=== PATIENT | female | born 1960 | race African-American/Black ===

== ENCOUNTER 2019-07-03 20:27 | Inpatient (IN) ==
[2019-07-03] MEDS ORDERED: SODIUM CHLORIDE 0.9% 1,000 ML IV STA (23:01)
[2019-07-03 23:14] LABS: Basophils % 0.2 % (0.0-0.8); Eosinophils % 0.1 % (0.00-10.9); Hematocrit 35.6 VOL% (35.7-47.0); Immature Granulocytes % 0.8 %; Immature Granulocytes Absolute 0.12 #; Lymphocytes # 1.7 10*3/uL (1.4-4.0); Lymphocytes % 11.6 % (21.3-54.2); Mean Corpuscular HGB Conc 30.9 GM/DL (32-36); Mean Corpuscular Volume 90.6 FL (87-102); Mean Platelet Volume 9.9 FL (9.6-12.0); Monocytes % 14.2 % (1.7-12.7); Neutrophils % 73.1 % (38.7-73.9); Platelet Count 293 T/CUMM (130-400); Red Blood Count 3.93 MC/CUMM (3.8-5.5); Red Cell Distribution Width 13.8 % (9.3-17.3); White Blood Count 14.7 T/CUMM (4-12)
[2019-07-03 23:18] LABS: Apearance,Urine CLEAR (Clear); Bacteria,Urine Occasional /HPF (Few); Bilirubin,Urine Negative (Negative); Blood, Urine Negative (Negative); Glucose,Urine (UA) Negative (Negative); Hyaline Casts,Urine 14 /LPF (0-3); Ketones,Urine 5 mg/dL (Negative); Mucus,Urine Few /LPF (Occasional); Nitrite,Urine Negative (Negative); Protein,Urine 30 MG/DL; RBC,Urine 1 /HPF (0-4); Squamous Epithelial Cell,Urine Occasional /HPF (0-10); Urine Color Amber (Yellow); Urine Specific Gravity 1.027 (1.001-1.035); Urine Urobilinogen < 2.0 EU/DL (0.2-1.0); WBC,Urine 2 /HPF (0-6)
[2019-07-03 23:26] LABS: Barbiturates Screen,Urine Negative (Negative); Benzodiazepines Screen,Urine Negative (Negative); Cannabinoid Screen,Urine Negative (Negative); Opiate Screen,Urine Positive (Negative); Phencyclidine Screen,Urine Negative (Negative)
[2019-07-03 23:31] LABS: INR 0.9; PT Patient Result 10.2 SECS
[2019-07-03 23:35] LABS: Alanine Aminotransferase 26 U/L (13-56); Alkaline Phosphatase 106 U/L (45-117); Aspartate Amino Transferase 26 U/L (0-37); Bilirubin,Total < 0.39 MG/DL (0.2-1.0); Blood Urea Nitrogen 49 MG/DL (7-18); Calcium 10.4 MG/DL (8.5-10.1); Glucose 198 MG/DL (74-106); Osmolality,Calculated 291.8 MOS/KG (273-304); Troponin I < 0.015 NG/ML (0.00-0.045)
[2019-07-04] MEDS ORDERED: PIPERACILLIN/TAZOBACTAM 3,375 MG in SODIUM CHLORIDE 0.9% 100 ML IV STA (00:55)
[2019-07-04] MEDS ORDERED: VANCOMYCIN INJ 1,000 MG in SODIUM CHLORIDE 0.9% 250 ML IV STA ×2 (00:55→01:15)
[2019-07-04] MEDS ORDERED: AZITHROMYCIN INJ 500 MG in SODIUM CHLORIDE 0.9% 250 ML IV SCH (04:30)
[2019-07-04] MEDS ORDERED: GLUCAGON 1 MG VIAL IM PRN (04:30)
[2019-07-04] MEDS ORDERED: ONDANSETRON 4 MG/2 ML VIAL IV PRN (04:30)
[2019-07-04] MEDS: SODIUM CHLORIDE 0.9% 1,000 ML IV SCH ×2 (05:40→14:52)
[2019-07-04 05:54] LABS: Basophils % 0.2 % (0.0-0.8); Eosinophils % 0.2 % (0.00-10.9); Hemoglobin 9.3 GM/DL (12.0-16.0); Immature Granulocytes % 0.4 %; Immature Granulocytes Absolute 0.05 #; Lymphocytes # 1.8 10*3/uL (1.4-4.0); Lymphocytes % 15.8 % (21.3-54.2); Mean Corpuscular Volume 90.6 FL (87-102); Mean Platelet Volume 9.6 FL (9.6-12.0); Monocytes % 13.2 % (1.7-12.7); Neutrophils % 70.2 % (38.7-73.9); Platelet Count 245 T/CUMM (130-400); Red Blood Count 3.31 MC/CUMM (3.8-5.5); Red Cell Distribution Width 14.1 % (9.3-17.3); White Blood Count 11.1 T/CUMM (4-12)
[2019-07-04 06:11] LABS: % Iron Saturation 9.4 % (18-50); Ferritin 220.6 ng/ml (8-252)
[2019-07-04] MEDS: cefTRIAXone 1,000 MG in SYRINGE 1 EACH IV SCH (06:15)
[2019-07-04 06:18] LABS: Vitamin B12 746 PG/ML (211-911)
[2019-07-04 07:10] LABS: Sedimentation Rate-Westergren 114 MM/HR (0-30)
[2019-07-04] MEDS ORDERED: glyBURIDE 5 MG TABLET PO SCH (07:30)
[2019-07-04] MEDS ORDERED: LOSARTAN 25 MG TABLET PO SCH (09:00)
[2019-07-04] MEDS: CHOLECALCIFEROL 1,000 UNIT TABLET PO SCH ×2 (10:04→21:46)
[2019-07-04] MEDS: DESVENLAFAXINE 50 MG TABLET PO SCH (10:04)
[2019-07-04] MEDS: PANTOPRAZOLE 40 MG TABLET PO SCH (10:04)
[2019-07-04] MEDS: AZITHROMYCIN INJ 500 MG in SODIUM CHLORIDE 0.9% 250 ML IV SCH (10:05)
[2019-07-04] MEDS: INSULIN LISPRO 100 UNIT/ML SUBCUT SCH ×3 (10:05→18:14)
[2019-07-04 14:01] LABS: PT Patient Result 10.4 SECS
[2019-07-04] MEDS: DEXTROSE 5% NACL 0.9% 1,000 ML IV SCH (14:56)
[2019-07-04] MEDS: DEXTROSE 10% 250 ML BAG IV PRN (15:18)
[2019-07-04] MEDS: ACETAMINOPHEN 325 MG TABLET PO PRN (15:24)
[2019-07-04] MEDS: metroNIDAZOLE INJ 500 MG in PREMIX 1 EACH IV SCH (17:55)
[2019-07-04 18:26] LABS: Lymphocytes,Pleural Fluid 31 %; Neutrophils,Pleural Fluid 69 %; RBC,Pleural Fluid 7395 T/CUMM
[2019-07-04] MEDS: MONTELUKAST 10 MG TABLET PO SCH (21:45)
[2019-07-04] MEDS: FAMOTIDINE 20 MG TABLET PO SCH (21:45)
[2019-07-05] MEDS: metroNIDAZOLE INJ 500 MG in PREMIX 1 EACH IV SCH (00:32)
[2019-07-05] MEDS: cefTRIAXone 1,000 MG in SYRINGE 1 EACH IV SCH (04:51)
[2019-07-05 04:57] LABS: Basophils % 0.1 % (0.0-0.8); Eosinophils % 0.1 % (0.00-10.9); Hematocrit 32.6 VOL% (35.7-47.0); Hemoglobin 10.3 GM/DL (12.0-16.0); Immature Granulocytes % 0.7 %; Immature Granulocytes Absolute 0.09 #; Lymphocytes % 15.1 % (21.3-54.2); Mean Corpuscular HGB Conc 31.6 GM/DL (32-36); Mean Corpuscular Volume 90.6 FL (87-102); Mean Platelet Volume 9.6 FL (9.6-12.0); Monocytes % 14.1 % (1.7-12.7); Neutrophils % 69.9 % (38.7-73.9); Platelet Count 286 T/CUMM (130-400); Red Cell Distribution Width 14.1 % (9.3-17.3); White Blood Count 13.4 T/CUMM (4-12)
[2019-07-05 05:14] LABS: Calcium 8.8 MG/DL (8.5-10.1); Osmolality,Calculated 280.1 MOS/KG (273-304)
[2019-07-05] MEDS: DEXTROSE 10% 250 ML BAG IV PRN (05:25)
[2019-07-05] MEDS: AZITHROMYCIN INJ 500 MG in SODIUM CHLORIDE 0.9% 250 ML IV SCH (09:19)
[2019-07-05 09:24] LABS: Hemoglobin A1 (Alkaline) 97.9 % (96.5-98.5); Hemoglobin A2 (Alkaline) 2.1 % (1.5-3.5)
[2019-07-05] MEDS: PANTOPRAZOLE 40 MG TABLET PO SCH (09:25)
[2019-07-05] MEDS: CHOLECALCIFEROL 1,000 UNIT TABLET PO SCH ×2 (09:25→20:32)
[2019-07-05] MEDS: DESVENLAFAXINE 50 MG TABLET PO SCH (09:25)
[2019-07-05] MEDS ORDERED: DORNASE ALFA INTRAPLEUR ONE (10:00)
[2019-07-05] MEDS ORDERED: ALTEPLASE INTRAPLEUR ONE ×2 (10:00→11:00)
[2019-07-05] MEDS: AMPICILLIN/SULBACTAM 3,000 MG in SODIUM CHLORIDE 0.9% 100 ML IV SCH ×3 (10:30→20:31)
[2019-07-05] MEDS: DEXTROSE 5% NACL 0.9% 1,000 ML IV SCH ×2 (15:44→21:32)
[2019-07-05] MEDS: MORPHINE 4 MG/1 ML VIAL IV PRN (16:42)
[2019-07-05] MEDS: POLYETHYLENE GLYCOL POWDER 17 GM PACK PO SCH (16:43)
[2019-07-05] MEDS: FLUTICASONE 50 MCG NASAL SPRAY 16 GM BOTTLE BOTH NARES SCH (20:31)
[2019-07-05] MEDS: FAMOTIDINE 20 MG TABLET PO SCH (20:32)
[2019-07-05] MEDS: MONTELUKAST 10 MG TABLET PO SCH (20:32)
[2019-07-06] MEDS: MORPHINE 4 MG/1 ML VIAL IV PRN ×3 (00:04→14:13)
[2019-07-06] MEDS: AMPICILLIN/SULBACTAM 3,000 MG in SODIUM CHLORIDE 0.9% 100 ML IV SCH ×4 (03:01→20:54)
[2019-07-06] MEDS: DEXTROSE 5% NACL 0.9% 1,000 ML IV SCH (03:01)
[2019-07-06 05:33] LABS: Basophils % 0.2 % (0.0-0.8); Eosinophils % 0.2 % (0.00-10.9); Hematocrit 30.1 VOL% (35.7-47.0); Hemoglobin 9.5 GM/DL (12.0-16.0); Immature Granulocytes % 0.4 %; Immature Granulocytes Absolute 0.05 #; Lymphocytes # 1.6 10*3/uL (1.4-4.0); Lymphocytes % 12.9 % (21.3-54.2); Mean Corpuscular HGB Conc 31.6 GM/DL (32-36); Mean Corpuscular Volume 88.5 FL (87-102); Mean Platelet Volume 9.7 FL (9.6-12.0); Monocytes % 13.1 % (1.7-12.7); Neutrophils % 73.2 % (38.7-73.9); Platelet Count 280 T/CUMM (130-400); White Blood Count 12.3 T/CUMM (4-12)
[2019-07-06 05:48] LABS: Calcium 8.4 MG/DL (8.5-10.1); Osmolality,Calculated 280.4 MOS/KG (273-304)
[2019-07-06] MEDS: CHOLECALCIFEROL 1,000 UNIT TABLET PO SCH ×2 (08:59→21:34)
[2019-07-06] MEDS: POLYETHYLENE GLYCOL POWDER 17 GM PACK PO SCH (08:59)
[2019-07-06] MEDS: PANTOPRAZOLE 40 MG TABLET PO SCH (08:59)
[2019-07-06] MEDS: FLUTICASONE 50 MCG NASAL SPRAY 16 GM BOTTLE BOTH NARES SCH (08:59)
[2019-07-06] MEDS ORDERED: AZITHROMYCIN 250 MG TABLET PO SCH (09:00)
[2019-07-06] MEDS ORDERED: DORNASE ALFA INTRAPLEUR ONE (09:00)
[2019-07-06] MEDS ORDERED: ALTEPLASE INTRAPLEUR ONE (09:00)
[2019-07-06] MEDS: DESVENLAFAXINE 50 MG TABLET PO SCH (09:02)
[2019-07-06] MEDS: VANCOMYCIN INJ 1,250 MG in SODIUM CHLORIDE 0.9% 250 ML IV SCH (11:56)
[2019-07-06] MEDS: ACETAMINOPHEN 325 MG TABLET PO PRN ×2 (17:04→20:53)
[2019-07-06] MEDS: INSULIN LISPRO 100 UNIT/ML SUBCUT SCH ×2 (17:05→21:29)
[2019-07-06] MEDS: FAMOTIDINE 20 MG TABLET PO SCH (20:53)
[2019-07-06] MEDS: MONTELUKAST 10 MG TABLET PO SCH (20:54)
[2019-07-07] MEDS: VANCOMYCIN INJ 1,250 MG in SODIUM CHLORIDE 0.9% 250 ML IV SCH ×2 (00:23→12:17)
[2019-07-07] MEDS: AMPICILLIN/SULBACTAM 3,000 MG in SODIUM CHLORIDE 0.9% 100 ML IV SCH ×4 (03:13→21:56)
[2019-07-07 06:06] LABS: Basophils % 0.3 % (0.0-0.8); Eosinophils % 0.1 % (0.00-10.9); Hematocrit 30.1 VOL% (35.7-47.0); Hemoglobin 9.7 GM/DL (12.0-16.0); Immature Granulocytes % 0.8 %; Immature Granulocytes Absolute 0.08 #; Lymphocytes # 1.9 10*3/uL (1.4-4.0); Lymphocytes % 17.6 % (21.3-54.2); Mean Corpuscular HGB Conc 32.2 GM/DL (32-36); Mean Platelet Volume 9.6 FL (9.6-12.0); Monocytes % 10.8 % (1.7-12.7); Neutrophils % 70.4 % (38.7-73.9); Platelet Count 319 T/CUMM (130-400); Red Blood Count 3.42 MC/CUMM (3.8-5.5); White Blood Count 10.5 T/CUMM (4-12)
[2019-07-07 06:08] LABS: Calcium 8.9 MG/DL (8.5-10.1); Osmolality,Calculated 281.3 MOS/KG (273-304)
[2019-07-07] MEDS: INSULIN LISPRO 100 UNIT/ML SUBCUT SCH ×4 (07:15→21:04)
[2019-07-07] MEDS: CHOLECALCIFEROL 1,000 UNIT TABLET PO SCH ×2 (08:20→21:56)
[2019-07-07] MEDS: PANTOPRAZOLE 40 MG TABLET PO SCH (08:20)
[2019-07-07] MEDS: FLUTICASONE 50 MCG NASAL SPRAY 16 GM BOTTLE BOTH NARES SCH (08:21)
[2019-07-07] MEDS: POLYETHYLENE GLYCOL POWDER 17 GM PACK PO SCH (08:21)
[2019-07-07] MEDS: DESVENLAFAXINE 50 MG TABLET PO SCH (08:21)
[2019-07-07] MEDS ORDERED: DORNASE ALFA INTRAPLEUR ONE (10:00)
[2019-07-07] MEDS ORDERED: ALTEPLASE INTRAPLEUR ONE (10:00)
[2019-07-07] MEDS: MORPHINE 4 MG/1 ML VIAL IV PRN (10:12)
[2019-07-07] MEDS: ACETAMINOPHEN 325 MG TABLET PO PRN ×2 (11:38→21:55)
[2019-07-07] MEDS: MONTELUKAST 10 MG TABLET PO SCH (21:56)
[2019-07-07] MEDS: ZALEPLON 5 MG CAPSULE PO PRN (21:56)
[2019-07-07] MEDS: FAMOTIDINE 20 MG TABLET PO SCH (21:56)
[2019-07-08] MEDS: VANCOMYCIN INJ 1,250 MG in SODIUM CHLORIDE 0.9% 250 ML IV SCH ×2 (01:09→13:26)
[2019-07-08] MEDS: AMPICILLIN/SULBACTAM 3,000 MG in SODIUM CHLORIDE 0.9% 100 ML IV SCH ×4 (02:55→21:11)
[2019-07-08] MEDS: INSULIN LISPRO 100 UNIT/ML SUBCUT SCH ×4 (07:52→21:16)
[2019-07-08] MEDS: DESVENLAFAXINE 50 MG TABLET PO SCH (10:33)
[2019-07-08] MEDS: PANTOPRAZOLE 40 MG TABLET PO SCH (10:33)
[2019-07-08] MEDS: CHOLECALCIFEROL 1,000 UNIT TABLET PO SCH ×2 (10:33→21:09)
[2019-07-08] MEDS: POLYETHYLENE GLYCOL POWDER 17 GM PACK PO SCH ×2 (10:33→10:40)
[2019-07-08] MEDS: FLUTICASONE 50 MCG NASAL SPRAY 16 GM BOTTLE BOTH NARES SCH (10:34)
[2019-07-08] MEDS: NICOTINE 21 MG/24 HR PATCH TRANSDERM SCH (14:36)
[2019-07-08] MEDS: ACETAMINOPHEN 325 MG TABLET PO PRN (18:18)
[2019-07-08] MEDS: ZALEPLON 5 MG CAPSULE PO PRN (21:09)
[2019-07-08] MEDS: MONTELUKAST 10 MG TABLET PO SCH (21:10)
[2019-07-08] MEDS: FAMOTIDINE 20 MG TABLET PO SCH (21:10)
[2019-07-09] MEDS: VANCOMYCIN INJ 1,250 MG in SODIUM CHLORIDE 0.9% 250 ML IV SCH ×2 (00:45→11:49)
[2019-07-09] MEDS: AMPICILLIN/SULBACTAM 3,000 MG in SODIUM CHLORIDE 0.9% 100 ML IV SCH ×4 (02:21→20:46)
[2019-07-09 05:53] LABS: Basophils % 0.3 % (0.0-0.8); Eosinophils % 0.7 % (0.00-10.9); Hematocrit 30.2 VOL% (35.7-47.0); Hemoglobin 9.7 GM/DL (12.0-16.0); Immature Granulocytes % 0.3 %; Immature Granulocytes Absolute 0.02 #; Lymphocytes # 1.9 10*3/uL (1.4-4.0); Lymphocytes % 31.2 % (21.3-54.2); Mean Corpuscular HGB Conc 32.1 GM/DL (32-36); Mean Platelet Volume 9.7 FL (9.6-12.0); Monocytes % 11.5 % (1.7-12.7); Platelet Count 375 T/CUMM (130-400); Red Blood Count 3.43 MC/CUMM (3.8-5.5); Red Cell Distribution Width 13.9 % (9.3-17.3); White Blood Count 5.9 T/CUMM (4-12)
[2019-07-09 06:24] LABS: Calcium 8.7 MG/DL (8.5-10.1); Osmolality,Calculated 283.3 MOS/KG (273-304)
[2019-07-09] MEDS: INSULIN LISPRO 100 UNIT/ML SUBCUT SCH ×4 (07:50→22:13)
[2019-07-09] MEDS: CHOLECALCIFEROL 1,000 UNIT TABLET PO SCH ×2 (09:59→20:46)
[2019-07-09] MEDS: PANTOPRAZOLE 40 MG TABLET PO SCH (09:59)
[2019-07-09] MEDS: DESVENLAFAXINE 50 MG TABLET PO SCH (09:59)
[2019-07-09] MEDS: NICOTINE 21 MG/24 HR PATCH TRANSDERM SCH (10:00)
[2019-07-09] MEDS: POLYETHYLENE GLYCOL POWDER 17 GM PACK PO SCH (10:00)
[2019-07-09] MEDS: FLUTICASONE 50 MCG NASAL SPRAY 16 GM BOTTLE BOTH NARES SCH (10:03)
[2019-07-09] MEDS: MORPHINE 4 MG/1 ML VIAL IV PRN (11:47)
[2019-07-09] MEDS: FAMOTIDINE 20 MG TABLET PO SCH (20:46)
[2019-07-09] MEDS: MONTELUKAST 10 MG TABLET PO SCH (20:46)
[2019-07-09] MEDS: ZALEPLON 5 MG CAPSULE PO PRN (20:48)
[2019-07-10] MEDS: VANCOMYCIN INJ 1,250 MG in SODIUM CHLORIDE 0.9% 250 ML IV SCH (00:30)
[2019-07-10] MEDS: MORPHINE 4 MG/1 ML VIAL IV PRN (01:16)
[2019-07-10] MEDS: AMPICILLIN/SULBACTAM 3,000 MG in SODIUM CHLORIDE 0.9% 100 ML IV SCH ×2 (02:55→09:18)
[2019-07-10] MEDS: INSULIN LISPRO 100 UNIT/ML SUBCUT SCH (07:16)
[2019-07-10 08:07] VITALS: BP 147/78
[2019-07-10] MEDS: NICOTINE 21 MG/24 HR PATCH TRANSDERM SCH (09:08)
[2019-07-10] MEDS: POLYETHYLENE GLYCOL POWDER 17 GM PACK PO SCH (09:08)
[2019-07-10] MEDS: DESVENLAFAXINE 50 MG TABLET PO SCH (09:09)
[2019-07-10] MEDS: PANTOPRAZOLE 40 MG TABLET PO SCH (09:09)
[2019-07-10] MEDS: CHOLECALCIFEROL 1,000 UNIT TABLET PO SCH (09:09)
[2019-07-10] MEDS: FLUTICASONE 50 MCG NASAL SPRAY 16 GM BOTTLE BOTH NARES SCH (09:22)
== END 2019-07-10 13:14 | disposition home or self-care (01) | DRG 167 ==
LOC: N.ED 20:27 → N.EDINP 07-04 03:11 → N.2E 07-04 03:54
PROVIDERS: ADMIT Internal Medicine; ATTEND Internal Medicine
PROC: IRTHORA (2019-07-04 15:55)